=== PATIENT | male | born 1980 | race American Indian/Alaskan Native ===

== ENCOUNTER 2018-10-17 16:07 | Emergency (ER) | payer OTHER ==
--- NOTE | 2018-10-17 17:40 | Emergency Department Report ---
HPI - General Chief Complaint: Allergic Reaction Time Seen by Provider: 10/17/18 17:35 - HPI HPI: Room 22 The patient is a 37-year-old male presenting with a chief complaint of allergic reaction. The patient states he had a cystoscopy performed this morning and after the procedure he was given prophylactic ciprofloxacin to take at home. The patient states he took ciprofloxacin at home and about 25 minutes later began developing tingling in his hands and then diffuse itching. She states it felt as those feet began burning and he didn't notice facial swelling. Patient states she developed chest tightness and had tightness and felt as though he was going to pass out. Patient states he attempted to drive to the hospital but had to stop secondary to his symptoms and had by bystanders call EMS. The patient states EMS administered Benadryl and epinephrine. Patient states he feels better now except for a headache. Location: [See above] Duration: [See above] Quality: [See above] Severity: Moderate Modifying factors: [see above] Context: [see above] Mode of transportation: [not driving] ED Past Medical Hx - Past Medical History Previous Medical History?: Yes Hx Headaches / Migraines: Yes (cluster headache) Additional medical history: enlarged prostate - Surgical History Past Surgical History?: No Additional Surgical History: Left knee arthroscopy - Family History Family history: no significant - Social History Smoking Status: Never Smoker Substance Use Type: None - Medications Home Medications: Home Medications Medication Instructions Recorded Confirmed Last Taken Type EPINEPHrine [Epipen 2-Mikel] 0.3 mg IM ONCE PRN #0.6 ml 10/17/18 Unknown Rx Famotidine [Pepcid] 20 mg PO BID #6 tablet 10/17/18 Unknown Rx Prednisone [predniSONE 10 mg 10 mg PO .TAPER #1 tab.ds.pk 10/17/18 Unknown Rx (6-Day Pack, 21 Tabs)] diphenhydrAMINE [Benadryl CAP] 50 mg PO Q6HR #24 capsule 10/17/18 Unknown Rx ED Review of Systems ROS: Stated complaint: ALLERGIC REACTION Other details as noted in HPI Constitutional: denies: fever Eyes: denies: eye pain ENT: denies: throat pain Respiratory: no symptoms reported Cardiovascular: chest pain, other (chest tightness) Endocrine: no symptoms reported Gastrointestinal: denies: abdominal pain Genitourinary: denies: dysuria Musculoskeletal: denies: back pain Skin: pruritus Neurological: headache Physical Exam - Physical Exam Vital Signs: Vital Signs 10/17/18 16:22 Temperature 98.1 F Pulse Rate 84 Respiratory 16 Rate Blood Pressure 118/77 O2 Sat by Pulse 100 Oximetry Physical Exam: GENERAL: The patient is well-developed well-nourished male lying on stretcher not appearing to be in acute distress. [] HEENT: Normocephalic. Atraumatic. Extraocular motions are intact. Patient has moist mucous membranes. NECK: Supple. No stridor CHEST/LUNGS: Clear to auscultation. There is no respiratory distress noted. HEART/CARDIOVASCULAR: Regular. There is no tachycardia. There is no gallop rub or murmur. ABDOMEN: Abdomen is soft, nontender. Patient has normal bowel sounds. There is no abdominal distention. SKIN: There is no rash. There is no edema. There is no diaphoresis. NEURO: The patient is awake, alert, and oriented. The patient is cooperative. The patient has normal speech MUSCULOSKELETAL: There is no evidence of acute injury. ED Course Vital Signs 10/17/18 16:22 Temperature 98.1 F Pulse Rate 84 Respiratory 16 Rate Blood Pressure 118/77 O2 Sat by Pulse 100 Oximetry - Reevaluation(s) Reevaluation #1: 10/17/18 19:28 Patient states he feels improved. Elevated CK discussed with the patient. Patient states he works out regularly. We'll hydrate the patient and recheck CK. If CK trending downward patient will be discharged home with prescriptions for allergic reaction ED Medical Decision Making - Lab Data Result diagrams: 10/17/18 18:23 10/17/18 18:23 Laboratory Tests 10/17/18 10/17/18 18:23 18:23 WBC 7.4 RBC 5.01 Hgb 15.4 H Hct 45.5 MCV 91 MCH 31 MCHC 34 RDW 13.6 Plt Count 191 Lymph % (Auto) 15.6 [place] % (Auto) 9.5 H Eos % (Auto) 0.2 Baso % (Auto) 0.3 Lymph # 1.2 [place] # 0.7 Eos # 0.0 Baso # 0.0 Seg Neutrophils % 74.4 H Seg Neutrophils # 5.5 Sodium 141 Potassium 4.2 Chloride 107.6 H Carbon Dioxide 26 Anion Gap 12 BUN 12 Creatinine 1.1 Estimated GFR > 60 BUN/Creatinine Ratio 11 Glucose 97 Calcium 8.4 Total Creatine Kinase 1350 H CK-MB (CK-2) 6.1 H CK-MB (CK-2) Rel Index 0.4 Troponin T < 0.010 Laboratory Tests 10/17/18 10/17/18 10/17/18 18:23 18:23 21:39 WBC 7.4 RBC 5.01 Hgb 15.4 H Hct 45.5 MCV 91 MCH 31 MCHC 34 RDW 13.6 Plt Count 191 Lymph % (Auto) 15.6 [place] % (Auto) 9.5 H Eos % (Auto) 0.2 Baso % (Auto) 0.3 Lymph # 1.2 [place] # 0.7 Eos # 0.0 Baso # 0.0 Seg Neutrophils % 74.4 H Seg Neutrophils # 5.5 Sodium 141 Potassium 4.2 Chloride 107.6 H Carbon Dioxide 26 Anion Gap 12 BUN 12 Creatinine 1.1 Estimated GFR > 60 BUN/Creatinine Ratio 11 Glucose 97 Calcium 8.4 Total Creatine Kinase 1350 H 1218 H CK-MB (CK-2) 6.1 H CK-MB (CK-2) Rel Index 0.4 Troponin T < 0.010 - EKG Data -: EKG Interpreted by Ct EKG shows normal: sinus rhythm Rate: normal - EKG Data When compared to previous EKG there are: previous EKG unavailable Interpretation: nonspecific ST-T wave mandy (early repolarization) - Differential Diagnosis acute allergic reaction, ACS, pericarditis Critical care attestation.: If time is entered above; I have spent that time in minutes in the direct care of this critically ill patient, excluding procedure time. ED Disposition Clinical Impression: Allergic reaction, Rhabdomyolysis Disposition: DC-01 TO HOME OR SELFCARE Is pt being admited?: No Does the pt Need Aspirin: No Condition: Stable Instructions: Antibiotic Medication Allergy (ED) Additional Instructions: You should no longer take antibiotics that are fluoroquinolones (ciprofloxacin, levofloxacin, gatifloxacin etc.). Return to the emergency department immediately should you develop worsening symptoms, fever, inability to tolerate food or liquid or any other concerns. Prescriptions: diphenhydrAMINE [Benadryl CAP] 50 mg PO Q6HR #24 capsule EPINEPHrine [Epipen 2-Mikel] 0.3 mg IM ONCE PRN #0.6 ml PRN Reason: Shortness Of Breath Famotidine [Pepcid] 20 mg PO BID #6 tablet Prednisone [predniSONE 10 mg (6-Day Pack, 21 Tabs)] 10 mg PO .TAPER #1 tab.ds.pk Referrals: PRIMARY CARE, [Primary Care Provider] - 3-5 Days
[2018-10-17] MEDS ORDERED: SOLU-Medrol IV ONE (17:43)
[2018-10-17] MEDS ORDERED: FIORICET PO ONE (17:47)
[2018-10-17 18:35] LABS: Basophils % (Auto) 0.3 % (0.0-1.8); Eosinophils % (Auto) 0.2 % (0.0-4.3); Hematocrit 45.5 % (35.5-45.6); Hemoglobin 15.4 gm/dl (11.8-15.2); Lymphocytes # (Auto) 1.2 K/mm3 (1.2-5.4); Lymphocytes % (Auto) 15.6 % (13.4-35.0); Mean Corpuscular HGB Conc 34 % (32-34); Mean Corpuscular Volume 91 fl (84-94); Monocytes # (Auto) 0.7 K/mm3 (0.0-0.8); Monocytes % (Auto) 9.5 % (0.0-7.3); Platelet Count 191 K/mm3 (140-440); Red Blood Count 5.01 M/mm3 (3.65-5.03); Red Cell Distribution Width 13.6 % (13.2-15.2)
[2018-10-17 19:15] LABS: Creatine Kinase MB 6.1 ng/mL (0.0-4.0)
[2018-10-17 19:18] LABS: BUN/Creatinine Ratio 11; Blood Urea Nitrogen 12 mg/dL (9-20); Calcium 8.4 mg/dL (8.4-10.2); Hemolysis Index 15
[2018-10-17] MEDS ORDERED: NACL 0.9% 1000 ML 1,000 ML IV ONE ×2 (19:24→19:25)
[2018-10-17 22:54] VITALS: BP 122/72
== END 2018-10-17 22:45 | disposition home or self-care (01) ==
LOC: ED 16:07
DX: T78.40XA Allergy, unspecified, initial encounter (principal); M62.82 Rhabdomyolysis; Y92.89 Other specified places as the place of occurrence of the external cause
CPT/HCPCS: 36415; 80048; 82550; 82553; 84484; 85025; 93005; 93010; 96361; 96374; 99284; J2930; J7030